=== PATIENT | male | born 1980 | race Caucasian/White ===

== ENCOUNTER → 2020-01-14 09:04 | Outpatient (CLI) | payer SELFPAY ==
[2013-11-30 06:23] VITALS: BMI 21.5
[~2020-01-14 09:04] MED LIST: HYDROCODONE-APA1 TAB PO; PRINIVIL20 MG PO
== END | disposition home or self-care (01) ==
LOC: D.US 09:00
PROVIDERS: ATTEND Family Medicine
DX: M79.605 Pain in left leg (principal)